=== PATIENT | male | born 1935 | race Caucasian/White ===

== ENCOUNTER 2016-05-03 13:59 | Emergency (ER) | payer MEDICARE ==
[~2016-05-03] VITALS: Ht 180.3 cm; Wt 56.8 kg
[~2016-05-03 13:59] MED LIST: BENZ100 PO
[2016-05-03 14:00] VITALS: BP 158/67; PULSE 101; RESP 16; TEMP 98.2; O2SAT 97
== END 2016-05-03 14:47 | disposition left against medical advice (07) ==
LOC: NED 13:59
DX: M54.2 Cervicalgia (principal)
CPT/HCPCS: 99281